=== PATIENT | male | born 2000 | race American Indian/Alaskan Native ===

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

== ENCOUNTER 2018-09-25 17:32 | Emergency (ER) | payer MEDICAID ==
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
[2018-09-25 18:41] LABS: Basophils % (Auto) 0.6 % (0.0-1.8); Hematocrit 43.6 % (35.5-45.6); Hemoglobin 14.6 gm/dl (11.8-15.2); Lymphocytes # (Auto) 0.9 K/mm3 (1.2-5.4); Mean Corpuscular HGB Conc 34 % (32-34); Mean Corpuscular Volume 86 fl (84-94); Monocytes # (Auto) 0.4 K/mm3 (0.0-0.8); Platelet Count 305 K/mm3 (140-440); Red Blood Count 5.04 M/mm3 (3.65-5.03); Red Cell Distribution Width 13.9 % (13.2-15.2)
[2018-09-25 18:49] LABS: Alanine Aminotransferase 18 units/L (7-56); Albumin 4.9 g/dL (3.9-5); BUN/Creatinine Ratio 8; Blood Urea Nitrogen 7 mg/dL (9-20); Calcium 9.7 mg/dL (8.4-10.2); Hemolysis Index 11
[2018-09-25 20:35] LABS: Benzodiazepines Screen,Urine PRESUMPTIVE NEGATIVE; Cannabinoid Screen,Urine PRESUMPTIVE NEGATIVE; Cocaine Screen,Urine PRESUMPTIVE NEGATIVE; Methadone Screen,Urine PRESUMPTIVE NEGATIVE; Opiate Screen,Urine PRESUMPTIVE NEGATIVE
[2018-09-25 20:53] LABS: Bilirubin,Urine NEG (Negative); Blood,Urine SM (Negative); Color,Urine Yellow (Yellow); Mucus,Urine 3+ /HPF; Urobilinogen,Urine < 2.0 mg/dL (<2.0)
[2018-09-25 20:54] LABS: Amphetamine Screen,Urine PRESUMPTIVE NEGATIVE
--- NOTE | 2018-09-26 11:39 | Consultation ---
History of Present Illness - Reason for Consult Consult date: 09/26/18 Reason for consult: Mental Health Evaluation Requesting physician: JORGE LUIS ANTHONY - Chief Complaint Chief complaint: "I don't know what I wanted yesterday" - History of Present Psychiatric Illness 18 y.o. AA male who presented to the Er for overdosing on Motrin pills to kill himself. Today the patient was calm and cooperative during the assessment. He stated that September 24 is the anniversary of his brother's . He stated that daisy ricardo has struggled with depression since the of his brother. He stated that he gets sad and want to isolate himself from family this time of year. He acknowledged that he ingested 10 Motrin pills yesterday. He would not conform or deny that he was attempting suicide when asked. He denies any previous suicide attempts in the past. He denies Hi's and AVH's. He denies erratic sleep and a poor appetite. He denies recreational drug use and alcohol consumption (etoh). Medications and Allergies Allergies Allergy/AdvReac Type Severity Reaction Status Date / Time No Known Allergies Allergy Verified 09/25/18 17:37 Home Medications Medication Instructions Recorded Confirmed Last Taken Type Valacyclovir HCl [Valtrex] 1,000 mg PO BID 10 Days #20 tab 02/27/17 Unknown Rx Past psychiatric history - Past Medical History Past Medical History: No medical history Past Surgical History: No surgical history - past Psychiatric treatment and history psychiatric treatment history: Denies a psy hx and fam psy hx. - Social History Social history: lives with family Mental Status Exam - Vital signs Last Vital Signs Temp 97.7 F 09/26/18 08:33 Pulse 68 09/26/18 08:33 Resp 16 09/26/18 08:33 BP 128/88 09/26/18 08:33 Pulse Ox 98 09/26/18 08:33 - Exam Narrative exam: MSE: Appearance: calm, cooperative Behavior: regular eye contact Speech: regular rate and tone Mood: "depressed" withdrawn Affect: congruent to mood Thought Process: circumstantial Thought Content: denies SI/HI's and AVH's Motor Activity: ambulatory Cognition: A/O x 3 Insight: variable Judgment: poor Results Result Diagrams: 09/25/18 18:11 09/25/18 18:11 Abnormal lab results 09/25/18 09/25/18 09/25/18 Range/Units 18:11 18:11 18:11 RBC 5.04 H (3.65-5.03) M/mm3 Lymph % (Auto) 12.0 L (13.4-35.0) % Lymph # 0.9 L (1.2-5.4) K/mm3 Seg Neutrophils % 82.4 H (40.0-70.0) % BUN 7 L (9-20) mg/dL Salicylates < 0.3 L (2.8-20.0) mg/dL Acetaminophen (10.0-30.0) ug/mL 09/25/18 Range/Units 18:11 RBC (3.65-5.03) M/mm3 Lymph % (Auto) (13.4-35.0) % Lymph # (1.2-5.4) K/mm3 Seg Neutrophils % (40.0-70.0) % BUN (9-20) mg/dL Salicylates (2.8-20.0) mg/dL Acetaminophen < 5.0 L (10.0-30.0) ug/mL All other labs normal. Assessment and Plan Assessment and plan: Impression: MDD, Severe Type. Complicated Grieving. Today the patient was calm and cooperative during the assessment. . DDx: SAD Recommendation/Plan: Continue 1013 and start Zoloft 50 mg PO daily for depressi on. Discussed possible metabolic side effects of Zoloft with the patient, he verbalized understanding. Dispo: The patient was referred to inpatient psy services. Will staff with Dr. Daily Donis.
[2018-09-26] MEDS: ZOLOFT PO SCH (12:00)
[2018-09-27] MEDS: ZOLOFT PO SCH (11:05)
--- NOTE | 2018-09-27 11:59 | Progress Note ---
Subjective - Reason for Consult Consult date: 09/27/18 Reason for consult: Psyhciatry Follow-up - Chief Complaint Chief complaint: "I feel better" 18 y.o. AA male who presented to the Er for overdosing on Motrin pills to kill himself. Today the patient was calm and cooperative during the assessment. He stated that he have been reflecting about his actions (overdose). He stated, "I made a terrible mistake." He stated that he spoke with his father yesterday which made him happy. He denies SI/HI's and AVH's. He denies any side effects of his medication. Mental Status Exam - Vital signs Last Vital Signs Temp 98.2 F 09/27/18 07:58 Pulse 63 09/27/18 07:58 Resp 18 09/27/18 07:58 BP 140/86 09/27/18 07:58 Pulse Ox 97 09/27/18 07:58 - Exam Narrative exam: MSE: Appearance: calm, cooperative Behavior: regular eye contact Speech: regular rate and tone Mood: "better" Affect: congruent to mood Thought Process: circumstantial Thought Content: denies SI/HI's and AVH's Motor Activity: ambulatory Cognition: A/O x 3 Insight: variable to fair Judgment: variable to fair Assessment and Plan Impression: MDD, Severe Type. Complicated Grieving. Today the patient was calm and cooperative during the assessment. . DDx: SAD Recommendation/Plan: Continue 1013 and Zoloft 50 mg PO daily for depression. Discussed possible metabolic side effects of Zoloft with the patient, he verbalized understanding. Dispo: The patient was referred to inpatient psy services. Will staff with Dr. Daily Donis.
[2018-09-28] MEDS: ZOLOFT PO SCH (11:00)
--- NOTE | 2018-09-28 11:09 | Progress Note ---
Subjective - Reason for Consult Consult date: 09/28/18 Reason for consult: Psychaitry Follow-up - Chief Complaint Chief complaint: "Hello" 18 y.o. AA male who presented to the Er for overdosing on Motrin pills to kill himself. Today the patient was calm and cooperative during the assessment. He stated that he will do well when discharged. He dneies SI/HI's and AVH's. He denies any side effects of his medication. Mental Status Exam - Vital signs Last Vital Signs Temp 97.7 F 09/28/18 10:27 Pulse 68 09/28/18 10:27 Resp 18 09/28/18 10:27 BP 129/87 09/28/18 10:27 Pulse Ox 99 09/28/18 10:27 - Exam Narrative exam: MSE: Appearance: calm, cooperative Behavior: regular eye contact Speech: regular rate and tone Mood: "better" Affect: congruent to mood Thought Process: circumstantial Thought Content: denies SI/HI's and AVH's Motor Activity: ambulatory Cognition: A/O x 3 Insight: fair Judgment: variable to fair Assessment and Plan Impression: MDD, Severe Type. Complicated Grieving. Today the patient was calm and cooperative during the assessment. . DDx: SAD Recommendation/Plan: Continue 1013 and Zoloft 50 mg PO daily for depression. Discussed possible metabolic side effects of Zoloft with the patient, he verbalized understanding. Dispo: The patient was referred to inpatient psy services. Will staff with Dr. Daily Donis.
[2018-09-29 03:14] VITALS: BP 143/90
[2018-09-29] MEDS: ZOLOFT PO SCH (13:23)
--- NOTE | 2018-09-29 14:48 | Progress Note ---
Subjective - Reason for Consult Consult date: 09/29/18 Reason for consult: Psychiatry Follow-up - Chief Complaint Chief complaint: "I will not do do this again" 18 y.o. AA male who presented to the Er for overdosing on Motrin pills to kill himself. Today the patient was calm and cooperative during the assessment. Per collateral information from his father Uday Rodriguez at [phone], he stated that his son does get sad during this time of year because of the of his brother. He stated that the patient reside with his girlfriend and her family. Per the patient, he confirmed that he does reside his girlfriend and her family. He is adamant that he will not try to harm himself again. He stated that he has a lot to live for. He denies SI/HI's and AVH's. He denies SI/HI's and AVH's. He denies any side effects of his medication. Mental Status Exam - Vital signs Last Vital Signs Temp 98.0 F 09/29/18 03:08 Pulse 69 09/29/18 03:08 Resp 18 09/29/18 03:08 BP 143/90 09/29/18 03:08 Pulse Ox 100 09/29/18 03:08 - Exam Narrative exam: MSE: Appearance: calm, cooperative Behavior: regular eye contact Speech: regular rate and tone Mood: "okay" Affect: congruent to mood Thought Process: linear Thought Content: denies SI/HI's and AVH's Motor Activity: ambulatory Cognition: A/O x 3 Insight: appropriate Judgment: appropriate Assessment and Plan Impression: MDD, Severe Type. Complicated Grieving. Today the patient was calm and cooperative during the assessment. The patient is no threat to self. DDx: SAD Suicide Risk Assessment I. This screening and assessment is based on information collected from the following sources: II. SUICIDE RISK SCREENING (within last 30 days): A.) Suicidal thoughts/behaviors: Yes SUICIDE RISK ASSESSMENT III. FACTORS THAT INCREASE RISK: A.) Demographic and Substance Use Factors: No. B.) Current/Recent Factors (within past 3 months): Psychosocial/Environmental Factors: of a family member Physical Illness: None Cognitive/Psychological Factors: None C.) Historical Factors: None D.) Diagnostic/Symptom/Treatment Factors: None E.) Acute Risk Factor Severity (DESC; MILD/MOD/SEVERE): Mild Other factors for this individual that increase risk: None IV. FACTORS THAT DECREASE RISK: Resilience/Protective Factors: Patient want to cope better with the of his brother. Other factors for this individual that decrease risk: Patient denies a desire to harm self V. Clinician's Formulation of Risk and Determination of level of Care: This is a 18 y.o. AA male who ingested several Motrin pills. He acknowledged that he should have not ingested the pills. He stated that he will follow-up with outpatient psy services once discharged. He has become insightful about how to better address his issue. The patient is not impaired by substance. He is able to take care of her ADLs and is not at imminent risk of harm to self or others. Consequently, it is the opinion of the treatment team that the patient is at low risk of suicide and does not meet criteria to continue an involuntary psychiatric hold. Estimation of Imminent Risk: Low due to the above explanation. Determination of Level of Care based on Suicide Risk: Outpatient follow-up. Narrative description of clinical reasoning. Given the fact that the patient is willing to engage in outpatient psy services. He is regretful of the decision to ingest the pills and has several things in his life to look forward to. At this current time, he is not impulsive and does not have any risk factors to increase the likelihood of is impulsive behavior. . Plan and Interventions based on Suicide Risk: This patient will likely be stepped down to an outpatient mental health center in the community upon discharge and follow-up within 7 days of his discharge from the hospital. VII. Discharge/After Hours Support Plan: Patient can return back to the ER, call 911 or crisis line if symptoms of depression, anxiety, suicidality return. Recommendation/Plan: Rescind 1013. Continue Zoloft 50 mg PO daily for depression. Discussed possible metabolic side effects of Zoloft with the patient, he verbalized understanding. Discussed generalized coping skills with the patient, he verbalized understanding. Dispo: The patient can follow up with [facility] for outpatient psy services. Staffed with Dr. Daily Donis.
== END 2018-09-29 14:05 | disposition home or self-care (01) ==
LOC: EEVIPCON 17:32 → ED 17:32
DX: T39.312A Poisoning by propionic acid derivatives, intentional self-harm, initial encounter (principal); F32.9 Major depressive disorder, single episode, unspecified; Y92.89 Other specified places as the place of occurrence of the external cause
CPT/HCPCS: 36415; 80053; 80307; 81001; 85025; 99284; G0480; 80320